=== PATIENT | female | born 1935 | race Caucasian/White ===

== ENCOUNTER 2018-10-14 20:00 | Outpatient (CLI) | payer MEDICARE | END 2018-10-14 20:01 | disposition EMS.NT | LOC: EMS 20:00 | PROVIDERS: ATTEND Surgery | DX: T63.441A Toxic effect of venom of bees, accidental (unintentional), initial encounter (principal); R53.81 Other malaise; L29.9 Pruritus, unspecified; R06.02 Shortness of breath ==

== ENCOUNTER 2021-02-14 08:00 | Outpatient (CLI) | payer MEDICARE ==
--- NOTE | 2021-02-14 15:59 | XRAY Report ---
PROCEDURE: Chest 2 View X-Ray INDICATIONS: ACUTE CHEST PAIN TECHNIQUE: 2 view(s) of the chest. COMPARISON: 10/26/2014. FINDINGS: Surgical changes and devices: Surgical clips are seen in left axilla.. Lungs and pleura: No pleural effusions or pneumothorax. Lungs are clear. Mediastinum: Mildly tortuous thoracic aorta is again seen. Heart size is mildly enlarged. Bones and chest wall: No suspicious bony abnormalities. Soft tissues appear unremarkable. IMPRESSION: No acute cardiopulmonary pathology. Reviewed by: Pérez Christensen MD on 02/14/2021 3:57 PM PST Approved by: Pérez Christensen MD on 02/14/2021 3:57 PM PST Station ID: [id number]
== END 2021-02-14 23:59 | disposition home or self-care (01) ==
LOC: DI.S 08:00
PROVIDERS: ATTEND Physician Assistant
DX: R07.89 Other chest pain (principal)

== ENCOUNTER 2021-02-14 16:43 | Emergency (ER) | payer MEDICARE ==
[2021-02-14 16:52] VITALS: BP 160/80
--- NOTE | 2021-02-14 16:55 | ED Physician Documentation ---
History of Present Illness - Stated complaint Stated Complaint: BACK PX - Chief complaint Chief Complaint: General - History obtained from History obtained from: Patient - Additonal information Additional information: Patient sent to the emergency department from the walk-in clinic for chief complaint of mid back pain, right shoulder pain, and cough for several days. Patient states that she has not been short of breath and has not really had chest pain. She states that sometimes when she gets the pain between her scapulae, she also gets a sense of nausea. This does not seem to be related to anything in particular, including food. The patient states she has in the distant past had "trouble with her gallbladder". However, she never had it removed. She has not had any pain after eating recently. She denies any fevers or chills. No jaundice. She denies any new swelling of her lower extremities. She states that ever since she was a young girl, she has gotten pain on the right side of her body that stretches from her lower leg all the way up into her shoulder and down her arm. She states nobody has ever figured out why. Patient denies any other complaints at this time. She was sent here by urgent care PA for further evaluation of her symptoms. Review of Systems Ten Systems: 10 systems reviewed and negative Constitutional: reports: Reviewed and negative Eyes: reports: Reviewed and negative Ears: reports: Reviewed and negative Nose: reports: Reviewed and negative Throat: reports: Reviewed and negative Cardiac: reports: Reviewed and negative Respiratory: reports: Reviewed and negative : reports: Reviewed and negative Skin: reports: Reviewed and negative Musculoskeletal: reports: Reviewed and negative Neurologic: reports: Reviewed and negative Psychiatric: reports: Reviewed and negative Endocrine: reports: Reviewed and negative Immunocompromised: reports: Reviewed and negative PD PAST MEDICAL HISTORY - Past Medical History Cardiovascular: None, Hypertension Respiratory: Asthma Endocrine/Autoimmune: None GI: None : None HEENT: Other Psych: Anxiety Musculoskeletal: Osteoarthritis Derm: None - Past Surgical History Past Surgical History: Yes Ortho: Hip replacement /[employer]: Mastectomy HEENT: Cataracts, Tonsil/Adenoidectomy - Present Medications Home Medications: Ambulatory Orders Medication Instructions Recorded Confirmed Multivitamin [Multivitamins] 1 each PO QDAC 12/03/12 10/26/14 traMADol [Ultram] 25 mg PO ONCE 12/03/12 10/26/14 HYDROcod/ACETAM 5/325 [[place] 5/325] 1 - 2 ea PO Q6H PRN #30 tablet 10/26/14 Letrozole 2.5 mg ORAL DAILY 10/26/14 10/26/14 Losartan [Cozaar] 50 mg ORAL DAILY 10/26/14 10/26/14 Ondansetron Odt [Zofran] 4 mg TL Q6H PRN #10 tablet 02/14/21 - Allergies Allergies/Adverse Reactions: Allergies Allergy/AdvReac Type Severity Reaction Status Date / Time egg Allergy Severe unknown Verified 02/14/21 16:47 ibandronate sodium Allergy Unknown Unknown Verified 02/14/21 16:47 [From Boniva] shellfish derived Allergy Hives Verified 02/14/21 16:47 iodine Allergy Hives Uncoded 02/14/21 16:47 - Social History Does the pt smoke?: No Smoking Status: Never smoker Does the pt drink ETOH?: No Does the pt have substance abuse?: No - Immunizations Immunizations are current?: Yes PD ED PE NORMAL - Vitals Vital signs reviewed: Yes - General General: Alert and oriented X 3, No acute distress, Well developed/nourished (Extremely well-appearing female who appears in good health and much younger than her stated age.) - HEENT HEENT: Atraumatic, PERRL, EOMI, Moist mucous membranes - Neck Neck: Supple, no meningeal sign - Cardiac Cardiac: RRR, No murmur, Strong equal pulses - Respiratory Respiratory: No respiratory distress, Clear bilaterally - Abdomen Abdomen: Soft, Non distended, Other (Mild epigastric tenderness. Mild right abdominal tenderness at the junction of the quadrants.) - Back Back: No spinal TTP, Other (Muscular tenderness in the intrascapular region bilaterally.) - Derm Derm: Normal color, Warm and dry, No rash - Extremities Extremities: No deformity, Other (Trace pitting edema bilateral lower extremities. Calves are symmetrical.) - Neuro Neuro: Alert and oriented X 3, asian art curator 2-12 intact, Normal speech, Other (Grossly intact) - Psych Psych: Normal mood, Normal affect Results - Vitals Vitals: Vital Signs - 24 hr 02/14/21 16:47 Temperature 36.5 C Heart Rate 80 Respiratory 16 Rate Blood Pressure 160/80 H O2 Saturation 96 Oxygen O2 Source Room air - Labs Labs: Laboratory Tests 02/14/21 02/14/21 02/14/21 17:29 17:29 17:29 WBC 6.8 RBC 4.27 Hgb 13.4 Hct 40.6 MCV 95.1 MCH 31.4 H MCHC 33.0 RDW 12.7 Plt Count 261 MPV 11.2 H Neut # (Auto) 4.8 Lymph # (Auto) 1.2 L [place] # (Auto) 0.6 Eos # (Auto) 0.1 Baso # (Auto) 0.0 Absolute Nucleated RBC 0.00 Nucleated RBC % 0.0 D-Dimer 205.2 Sodium 132 L Potassium 3.9 Chloride 96 L Carbon Dioxide 27 Anion Gap 9.0 BUN 26 H Creatinine 0.4 Estimated GFR (MDRD) 152 Glucose 100 Calcium 9.2 Total Bilirubin 0.4 AST 29 ALT 26 Alkaline Phosphatase 61 Total Protein 7.6 Albumin 4.2 Globulin 3.4 Albumin/Globulin Ratio 1.2 Lipase 23 - Rads (name of study) US RUQ Radiology: Final report received, See rad report (NAD; liver calcifications unchanged from prior study.) PD MEDICAL DECISION MAKING - ED course Complexity details: reviewed results, re-evaluated patient, considered differential, d/w patient ED course: I discussed with the patient that I do not feel it is likely that she has either a PE or a cardiac issue. Her pain actually seems to be more musculoskeletal, but given that she does experience some nausea when she gets intrascapular pain and that she is also had some sensation of right upper quadrant pain and a questionable history of some sort of gallbladder issue without cholecystectomy, I obtained an ultrasound her right upper quadrant. THis was unremarkable. Laboratory studies were also obtained, and unremarkable. The pt was stable for d/c. I did not find evidence of an emergent condition, and we have discussed the need for follow-up with her PCP. Departure - Departure Disposition: 01 Home, Self Care Clinical Impression: Muscle strain of upper back, Post-nasal drip, Nausea Condition: Stable Instructions: ED Back Care Tips, ED Nausea Vomiting Prescriptions: Ondansetron Odt [Zofran] 4 mg TL Q6H PRN #10 tablet PRN Reason: Nausea / Vomiting Comments: Your tests all look good. The lab that we checked to assess the likelihood of blood clot is normal. Your ultrasound does not show any stones in your gallbladder. You do have some findings in your liver that have been chronic for quite some time, and there is no evidence of change that would be concerning at this point. Most likely, the morning cough that you have which produces phlegm is caused by postnasal drip, which is drainage from your upper nose and sinuses that runs down into your throat and upper airways at night and is usually coughed out in the morning. This can be due to some mild chronic irritation from dust or other allergies, or if it is acute and short-lived, sometimes caused by a cold virus. As far as your back pain, this seems most likely to be muscular as you were tender over that same area. Your chest x-ray does not show any pneumonia or any other complete concerning findings. It is not clear at this point in time why you are having the bouts of nausea, but if things get worse, you will need to talk to your doctor about having an endoscopy to take a look at the lining of your esophagus, stomach, and the first part of small intestine. In the meantime, you may use stretching and heat packs to help with the pain in between your shoulder blades. You may also use ibuprofen and Tylenol if needed. If the nausea is especially bothersome, you may also take the nausea medicine prescribed. Please make an appointment with your primary care physician to follow-up on these issues. Discharge Date/Time: 02/14/21 19:05
[2021-02-14 17:40] LABS: BASOPHILS % (AUTO) 0.6 %; EOSINOPHILS # (AUTO) 0.1 10^3/uL (0.0-0.7); EOSINOPHILS % (AUTO) 1.8 %; HCT - HEMATOCRIT 40.6 % (37.0-47.0); HGB - HEMOGLOBIN 13.4 g/dL (12.0-16.0); LYMPHOCYTES # (AUTO) 1.2 10^3/uL (1.5-3.5); LYMPHOCYTES % (AUTO) 17.3 %; MEAN CORPUSCULAR HEMOGLOBIN 31.4 pg (27.0-31.0); MEAN CORPUSCULAR VOLUME 95.1 fL (81.0-99.0); MEAN PLATELET VOLUME 11.2 fL (7.9-10.8); MONOCYTES # (AUTO) 0.6 10^3/uL (0.0-1.0); NEUTROPHILS # (AUTO) 4.8 10^3/uL (1.5-6.6); PLT - PLATELET COUNT 261 10^3/uL (130-450); RED BLOOD COUNT 4.27 10^6/uL (4.20-5.40); RED CELL DISTRIBUTION WIDTH 12.7 % (12.0-15.0); WHITE BLOOD COUNT 6.8 x10^3/uL (4.8-10.8)
[2021-02-14 17:52] LABS: ALBUMIN 4.2 g/dL (3.2-5.5); ALBUMIN/GLOBULIN RATIO 1.2 (1.0-2.2); BILIRUBIN,TOTAL 0.4 mg/dL (0.2-1.0); CALCIUM 9.2 mg/dL (8.5-10.3); CREATININE 0.4 mg/dL (0.4-1.0); POTASSIUM 3.9 mmol/L (3.5-5.0); TOTAL PROTEIN 7.6 g/dL (6.7-8.2)
--- NOTE | 2021-02-14 18:58 | Ultrasound Report ---
PROCEDURE: Abdomen Limited INDICATIONS: RUQ pain/nausea TECHNIQUE: Real-time focused scanning was performed of the right upper quadrant, with image documentation. COMPARISON: Ultrasound abdomen 12/09/2007. FINDINGS: Within the right hepatic lobe, there are 2 echogenic shadowing oval lesions measuring up to 1.1 cm an d 0.9 cm consistent with calcifications. These appear similar to the prior study. Gallbladder demonstrates no stones, wall thickening, or pericholecystic fluid. No definite intra or extra hepatic biliary ductal dilatation. The visualized common bile duct measure s up to approximately 7 mm. The right kidney measures 10.5 cm. No hydronephrosis. There is a simple cyst measuring up to 1.1 cm. The pancreas was not well seen due to bowel gas. IMPRESSION: 1. No evidence of cholelithiasis or cholecystitis. 2. No biliary ductal dilatation. 3. Echogenic shadowing foci redemonstrated in the liver consistent with calcifications. Reviewed by: Tyrese Prater MD on 02/14/2021 5:57 PM [place] Approved by: Tyrese Prater MD on 02/14/2021 5:57 PM [place] Station ID: [id number]
== END 2021-02-14 19:05 | disposition home or self-care (01) ==
LOC: ED 16:43
DX: S29.012A Strain of muscle and tendon of back wall of thorax, initial encounter (principal); X58.XXXA Exposure to other specified factors, initial encounter; R09.82 Postnasal drip; R11.0 Nausea; R10.11 Right upper quadrant pain; K76.89 Other specified diseases of liver; I10 Essential (primary) hypertension
CPT/HCPCS: 36415; 80053; 83690; 85025; 85379; 99283; 99284

== ENCOUNTER 2022-10-12 15:58 | Emergency (ER) | payer MEDICARE ==
[2022-10-12 16:05] VITALS: BP 160/80
[2022-10-12] MEDS ORDERED: IBUPROFEN 600 MG TABLET PO STA (16:31)
--- NOTE | 2022-10-12 17:02 | XRAY Report ---
PROCEDURE: Shoulder 3 View RT INDICATIONS: fall, R shoulder pain TECHNIQUE: 3 views of the shoulder were acquired. COMPARISON: None. FINDINGS: Bones: Question distal aspect clavicular fracture. This is not definite. Subacromial spur. Severe gl enohumeral joint degenerative arthritis with large osteophyte. No suspicious bony lesions. Visualize d ribs appear intact. Soft tissues: No suspicious soft tissue calcifications. IMPRESSION: Question distal aspect clavicular fracture. This is not definite. Subacromial spur, severe glenohumer al joint degenerative change. Recommend clinical correlation for presence or absence of focal point tenderness near the acromioclav icular joint. Consider CT if suspect acute fracture. Reviewed by: Ran River MD on 10/12/2022 5:01 PM PDT Approved by: Ran River MD on 10/12/2022 5:01 PM PDT Station ID: [id number]
--- NOTE | 2022-10-12 17:44 | CT Report ---
PROCEDURE: HEAD WO INDICATIONS: fall, head injury TECHNIQUE: Noncontrast 4.5 mm thick angled axial sections acquired from the foramen magnum to the vertex. For r adiation dose reduction, the following was used: automated exposure control, adjustment of mA and/or kV according to patient size. COMPARISON: None available for review. FINDINGS: Image quality: Excellent. CSF spaces: Basal cisterns are patent. No extra-axial fluid collections. Ventricles are normal in size and shape. Brain: No midline shift. No intracranial masses or hemorrhage. No mass effect. Delaney-white matter i nterface is normal. There cerebral volume loss for age with resultant ventricular and sulcal prominen ce. There are periventricular and deep white matter chronic small vessel ischemic changes. Atheroscle rotic calcifications are noted in the intracranial segments of the bilateral internal carotid arterie s. Skull and face: Calvarium and visualized facial bones are intact, without suspicious lesions. Sinuses: Ethmoid and sphenoid sinus disease. Mastoid air cells are clear. Possible right posterior na sopharynx polyp. IMPRESSION: CT head without acute intracranial abnormalities. Age-related senescent changes and sequela of chronic small vessel ischemic disease. No acute calvarial fractures. Reviewed by: Chucho Pardo MD on 10/12/2022 5:42 PM PDT Approved by: Chucho Pardo MD on 10/12/2022 5:42 PM PDT Station ID: [id number]
[2022-10-12] MEDS ORDERED: ACETAMINOPHEN 325 MG TABLET PO STA (18:45)
[2022-10-12] MEDS ORDERED: oxyCODONE 5 MG TABLET PO STA (18:57)
--- NOTE | 2022-10-12 19:37 | ED Physician Documentation ---
History of Present Illness - Stated complaint Stated Complaint: GLF, HIT HEAD, RT SHOULDER PX - Chief complaint Chief Complaint: Trauma Hd/Nk - History obtained from History obtained from: Patient, Family - History of Present Illness Timing: Today Pain level max: 5 Pain level now: 5 - Additonal information Additional information: Patient is an 87-year-old female who was inside the her home today when she tripped and fell hitting her head on the concrete and hitting her right shoulder on the concrete as well. No loss of consciousness. No vomiting. She is not on blood thinners. No neck or back pain. No seizure activity. No vomiting. No numbness or tingling. Most of the pain is in the right shoulder. Worse with movement, better with rest. No hip pain, no elbow or wrist pain. No knee pain. This was a mechanical fall. Review of Systems Constitutional: denies: Fever Respiratory: denies: Cough GI: denies: Vomiting Musculoskeletal: denies: Neck pain, Back pain Neurologic: reports: Headache (mild). 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: Mastectomy HEENT: Cataracts, Tonsil/Adenoidectomy - Present Medications Home Medications: Ambulatory Orders Medication Instructions Recorded Confirmed Multivitamin [Multivitamins] 1 each PO QDAC 12/03/12 10/26/14 traMADol [Ultram] 25 mg PO ONCE 12/03/12 10/26/14 HYDROcod/ACETAM 5/325 [[place] 5/325] 1 - 2 ea PO Q6H PRN #30 tablet 10/26/14 Letrozole 2.5 mg ORAL DAILY 10/26/14 10/26/14 Losartan [Cozaar] 50 mg ORAL DAILY 10/26/14 10/26/14 Ondansetron Odt [Zofran] 4 mg TL Q6H PRN #10 tablet 02/14/21 oxyCODONE [Roxicodone] 2.5 - 5 mg PO Q6H PRN #10 tablet 10/12/22 MDD 6 - Allergies Allergies/Adverse Reactions: Allergies Allergy/AdvReac Type Severity Reaction Status Date / Time egg Allergy Severe unknown Verified 10/12/22 16:02 ibandronate sodium Allergy Unknown Unknown Verified 10/12/22 16:02 [From Boniva] shellfish derived Allergy Hives Verified 10/12/22 16:02 iodine Allergy Hives Uncoded 10/12/22 16:02 - Social History Does the pt smoke?: No Smoking Status: Never smoker Does the pt drink ETOH?: No Does the pt have substance abuse?: No - Immunizations Immunizations are current?: Yes PD ED PE NORMAL - Vitals Vital signs reviewed: Yes - General General: Alert and oriented X 3, No acute distress, Well developed/nourished - HEENT HEENT: Atraumatic, PERRL, EOMI, Ears normal, Moist mucous membranes, Pharynx benign - Neck Neck: Supple, no meningeal sign, No bony TTP - Cardiac Cardiac: RRR, Strong equal pulses - Respiratory Respiratory: No respiratory distress, Clear bilaterally - Abdomen Abdomen: Soft, Non tender, Non distended - Back Back: No CVA TTP, No spinal TTP - Derm Derm: Warm and dry - Extremities Extremities: No deformity, Other (Tender to palpation over the right AC joint, Has good range of motion of the right glenohumeral joint, though increased pain with active versus passive range of motion. Neurovascular intact. Otherwise normal exam of the right upper extremity.) - Neuro Neuro: Alert and oriented X 3 - Psych Psych: Normal mood, Normal affect Results - Vitals Vitals: Vital Signs - 24 hr 10/12/22 16:02 Temperature 36.5 C Heart Rate 95 Respiratory 16 Rate Blood Pressure 160/80 H O2 Saturation 96 Oxygen O2 Source Room air - Rads (name of study) CT head Relevant Findings:: Final report received, See rad report Right shoulder x-ray Relevant Findings:: Final report received, See rad report CT right upper extremity Relevant Findings:: Final report received, See rad report PD Medical Decision Making - ED course Complexity details: reviewed results, re-evaluated patient, considered differential, d/w patient, d/w family ED course: 87-year-old female status post a ground-level fall, mechanical at home. She struck her head on a concrete floor as well as her right shoulder. No acute findings on head CT. Her right shoulder x-ray was equivocal for potential clavicle fracture, radiology recommended CT, therefore this was performed. This does confirm the distal right clavicle fracture. Neurovascularly intact. Axillary nerve intact. Placed in a sling for comfort. We will prescribe pain medication for home. Pain well controlled here. Ambulating without difficulty. No other acute injuries. Patient counseled regarding signs and symptoms for which I believe and urgent re-evaluation would be necessary. Patient with good understanding of and agreement to plan and is comfortable going home at this time This document was made in part using voice recognition software. While efforts are made to proofread this document, sound alike and grammatical errors may occur. Departure - Departure Disposition: Home, Self Care Clinical Impression: Closed fracture of distal clavicle Qualifiers: Encounter type: initial encounter Fracture alignment: nondisplaced Laterality: right Qualified Code(s): S42.034A - Nondisplaced fracture of lateral end of right clavicle, initial encounter for closed fracture Closed head injury Qualifiers: Encounter type: initial encounter Qualified Code(s): S09.90XA - Unspecified injury of head, initial encounter Condition: Good Instructions: ED Fx Clavicle, ED Head Injury Closed Follow-Up: your,doctor in 1 week [Other] Orthopedic Care [Provider Group] Prescriptions: oxyCODONE [Roxicodone] 2.5 - 5 mg PO Q6H PRN #10 tablet MDD 6 PRN Reason: pain Comments: Your prescriptions were sent to [facility] in [place]. Please follow-up with your doctor in 1 week for repeat evaluation. They may want you to follow-up with orthopedics for your clavicle fracture as well. I am prescribing a short course of narcotic pain medication for you. These are potentially dangerous and addictive medications that should be used carefully. These medications may constipate you. Take an rfrw-gsr-ubivgsq stool softener (docusate) twice daily with plenty of water while taking these medications. If you go 24 hours without a bowel movement, take uylm-zhf-[id number] miralax, per package instructions. Do not drink or drive while taking these medications. If you received narcotic or sedating medications while in the emergency department, do not drive for 24 hours. Store this medication in a safe, secure place and out of reach of children. It is a violation of federal law to give or sell this medication to another person or to use in a manner other than prescribed. The ED will not refill narcotic prescriptions, including prescriptions lost or stolen. To dispose of unwanted medications: 1. [facility] at [address] in [place] has a medication drop box. They accept prescription medications (in pill form) Sunday through Sunday 9:00 a.m. to 5:00 p.m. 2. The [facility] [place] [employer] accepts prescription medications (in pill form only) for disposal year round. Call for more information. 3. Contact the [facility] for the next [facility] sponsored prescription drug collection event. , [phone], or [phone]; Forms: PCP List Discharge Date/Time: 10/12/22 17:50
--- NOTE | 2022-10-12 19:38 | CT Report ---
PROCEDURE: UPPER EXTREMITY WO - RT INDICATIONS: fall, possible clavicle fracture TECHNIQUE: Noncontrast 2 mm axial sections were acquired through the elbow joint, with coronal and sagittal refo rmats. For radiation dose reduction, the following was used: automated exposure control, adjustment of mA and/or kV according to patient size. COMPARISON: Shoulder series from earlier same day FINDINGS: Image quality: Diagnostic. Bones: There is a mildly comminuted, impacted fracture involving the distal right clavicle. Coracocl avicular and coronal clavicular intervals are maintained. Severe degenerative changes of the acromioc lavicular and glenohumeral joints. No suspicious osseous lesions. Soft tissues: Visualized portions of the lungs are clear. No suspicious soft tissue lesions. No cirilo opathy seen. IMPRESSION: Mildly comminuted and impacted fracture of the distal right clavicle. Severe degenerative changes of the acromioclavicular and glenohumeral joints. Reviewed by: Chucho Pardo MD on 10/12/2022 7:36 PM PDT Approved by: Chucho Pardo MD on 10/12/2022 7:36 PM PDT Station ID: [id number]
== END 2022-10-12 17:50 | disposition home or self-care (01) ==
LOC: ED 15:58
DX: S09.90XA Unspecified injury of head, initial encounter (principal); S42.031A Displaced fracture of lateral end of right clavicle, initial encounter for closed fracture; W01.0XXA Fall on same level from slipping, tripping and stumbling without subsequent striking against object, initial encounter; Y92.009 Unspecified place in unspecified non-institutional (private) residence as the place of occurrence of the external cause; I10 Essential (primary) hypertension; Z79.899 Other long term (current) drug therapy
CPT/HCPCS: 70450; 73030; 73200; 99284; A9270

== ENCOUNTER 2023-01-11 13:42 | Emergency (ER) | payer MEDICARE ==
[2023-01-11 13:56] VITALS: BP 175/58; O2SAT 99
[2023-01-11] MEDS ORDERED: MELOXICAM 7.5 MG TABLET PO STA (14:10)
--- NOTE | 2023-01-11 14:14 | ED Physician Documentation ---
History of Present Illness - Stated complaint Stated Complaint: LT SHOULDER PX - Chief complaint Chief Complaint: Ext Problem - History obtained from History obtained from: Patient - History of Present Illness Timing: How many days ago (2) Pain level max: 5 Pain level now: 5 - Additonal information Additional information: 87-year-old female presents to the emergency department with left shoulder pain. She states that she was going up the stairs at home 4 days ago when she felt a pop in her left shoulder. Since that time she has had pain with movement. Has not taken anything for the pain. She states that her house was cold so she did not ice it. No numbness or tingling. No deformity. She is only having pain with movement. Review of Systems Constitutional: denies: Fever Skin: denies: Rash Musculoskeletal: denies: Neck pain, Back pain Neurologic: denies: Headache, Head injury, LOC PD PAST MEDICAL HISTORY - Past Medical History Cardiovascular: None, Hypertension Respiratory: Asthma Endocrine/Autoimmune: None GI: None : None HEENT: Other Psych: Anxiety Musculoskeletal: Osteoarthritis Derm: None - Past Surgical History Past Surgical History: Yes Ortho: Hip replacement /ENDBANDER: Mastectomy HEENT: Cataracts, Tonsil/Adenoidectomy - Present Medications Home Medications: Ambulatory Orders Medication Instructions Recorded Confirmed Multivitamin [Multivitamins] 1 each PO QDAC 12/03/12 01/11/23 Losartan [Cozaar] 50 mg ORAL DAILY 10/26/14 01/11/23 Buspirone HCl 10 mg PO DAILY PM 01/11/23 01/11/23 Meloxicam [Mobic] 7.5 mg PO DAILY #14 tablet 01/11/23 - Allergies Allergies/Adverse Reactions: Allergies Allergy/AdvReac Type Severity Reaction Status Date / Time egg Allergy Severe unknown Verified 01/11/23 13:55 ibandronate sodium Allergy Unknown Unknown Verified 01/11/23 13:55 [From Boniva] shellfish derived Allergy Hives Verified 01/11/23 13:55 iodine Allergy Hives Uncoded 01/11/23 13:55 - Social History Does the pt smoke?: No Smoking Status: Never smoker Does the pt drink ETOH?: No Does the pt have substance abuse?: No - Immunizations Immunizations are current?: Yes PD ED PE NORMAL - Vitals Vital signs reviewed: Yes - General General: Alert and oriented X 3, No acute distress - HEENT HEENT: Moist mucous membranes - Derm Derm: Warm and dry - Extremities Extremities: Other - Neuro Neuro: Alert and oriented X 3 - Psych Psych: Normal mood, Normal affect - Free text exam Free text exam: No pain with passive range of movement throughout the entirety of the left shoulder range of motion. There is some pain with active motion. Neurovascular intact including the axillary nerve. No gross deformity. No tenderness over the AC joint. Normal neck exam. Otherwise normal exam of the left upper extremity. Results - Vitals Vitals: Vital Signs - 24 hr 01/11/23 13:49 Temperature 36.7 C Heart Rate 84 Respiratory 16 Rate Blood Pressure 175/58 H O2 Saturation 99 Oxygen O2 Source Room air PD Medical Decision Making - ED course Complexity details: reviewed results, re-evaluated patient, considered differential, d/w patient ED course: Patient has no pain in the emergency department. She is moving without any difficulty. No evidence of fracture, dislocation. No indication for radiographs. Neurovascular intact. Will place on anti-inflammatories for home and have her follow-up with her doctor for further care. Patient counseled regarding signs and symptoms for which I believe and urgent re-evaluation would be necessary. Patient with good understanding of and agreement to plan and is comfortable going home at this time This document was made in part using voice recognition software. While efforts are made to proofread this document, sound alike and grammatical errors may occur. Departure - Departure Disposition: 01 Home, Self Care Clinical Impression: Left shoulder strain Qualifiers: Encounter type: initial encounter Qualified Code(s): S46.912A - Strain of unspecified muscle, fascia and tendon at shoulder and upper arm level, left arm, initial encounter Condition: Good Instructions: ED Strain Muscle Ext Follow-Up: your,doctor in 1 week if still in pain [Other] Prescriptions: Meloxicam [Mobic] 7.5 mg PO DAILY #14 tablet Comments: Your prescription was sent to [facility] in [place]. Please follow-up with your doctor for further care. Please return if you worsen. This should improve over the next few days. Continue to gently stretch your shoulder at home. Forms: PCP List
== END 2023-01-11 14:43 | disposition home or self-care (01) ==
LOC: ED 13:42
DX: S46.912A Strain of unspecified muscle, fascia and tendon at shoulder and upper arm level, left arm, initial encounter (principal); X58.XXXA Exposure to other specified factors, initial encounter; Y93.01 Activity, walking, marching and hiking; Y92.008 Other place in unspecified non-institutional (private) residence as the place of occurrence of the external cause; I10 Essential (primary) hypertension; Z79.899 Other long term (current) drug therapy
CPT/HCPCS: 99282; 99283; A9270